=== PATIENT | female | born 1975 | race Caucasian/White ===

== ENCOUNTER 2017-03-07 17:03 | Emergency (ER) | payer OTHER ==
[~2017-03-07] VITALS: Ht 154.9 cm; Wt 81.6 kg
[~2017-03-07 17:03] MED LIST: ASPIR-TRIN325 M1 PO; ATARAX,VISTARIL25 MG PO; ATIVAN1 MG PO; BACLOFEN10 MG PO; BLACK COHOSH540 MG PO; DEPO-PROVER150 MG/ML IM; DEPO-PROVERA; DESYREL100 MG PO; DICLOFENAC POTA50 MG PO; FENOFIBRATE145 M1 PO; FLEXERIL10 MG PO; GLUCOPHAGE500 MG PO; HYDROCODON-ACE1 EAC7 PO; HYDROCODON-ACE1 EAC9 PO; Habitrol,Nicoderm CQ TD; INDOMETHACIN50 MG PO; KEFLEX500 MG PO; KLONOPIN1 MG PO; LIDODERM 5% P1 PATCH TD; LIPITOR10 MG PO; LOPRESSOR25 MG PO; LOVASTATIN10 MG PO; LYRICA150 MG PO; LYRICA75 MG PO; Lopressor PO; METFORMIN HCL500 M1 PO; METOPROLOL TART25 MG PO; MILK OF MAGN PO; MOBIC15 MG PO; MORPHINE SULFAT15 M1 PO; Motrin PO; NAPROSYN500 MG PO; NEXIUM20 MG PO; NICOTINE PATCH1 EAC1 TD; NORCO 7.5/321 TABLET PO; PERCOCET 7.51 TABLET PO; PRILOSEC10 MG PO; PRILOSEC40 MG PO; PROTONIX40 MG PO; PriLOSEC PO; RELPAX40 MG PO; REMERON45 MG PO; RITALIN20 MG PO; Reglan PO; SEROQUEL300 MG PO; SEROQUEL400 MG PO; SEROquel PO; TIZANIDINE HCL4 M1 PO; TOPROL XL50 MG PO; Tylenol Regular Stre PO; ULTRAM50 MG PO; VALIUM10 MG PO; VALTREX1000 MG PO; Valium PO; ZANAFLEX PO; ZESTRIL5 MG PO; ZOFRAN4 MG PO; ZOVIRAX800 M1 PO
[2017-03-07 17:44] LABS: HEMATOCRIT 41.6 % (36.0-46.0); MCH 26.5 PG (29.0-34.0); MCHC 32.9 G/DL (30.0-36.0); MCV 80.5 FL (83-99); MEAN PLAT.VOLUME 9.4 uM^3 (9.5-12.4); PLATELET COUNT 315 K/uL (156-360); RBC DIS.WIDTH-SD 46.3 % (39-53); RED BLOOD COUNT 5.17 M/uL (3.80-5.20); WHITE BLOOD COUNT 7.4 K/uL (4.1-10.2)
[2017-03-07 17:54] LABS: CHLORIDE 100 mEq/L (99-109); POTASSIUM 2.9 mEq/L (3.7-5.4); SODIUM 135 mEq/L (136-147)
[2017-03-07 17:57] LABS: GLUCOSE 151 mg/dL (70-99)
[2017-03-07 17:58] LABS: ANION GAP 14 MEQ/L (2-14)
[2017-03-07 17:59] LABS: TOTAL BILIRUBIN 0.5 mg/dL (0.0-1.0)
[2017-03-07 18:00] LABS: ALKALINE PHOSPHATASE 77 IU/L (3-129); GFR ESTIMATE (CALCULATED) > 59 mL/min/
[2017-03-07 18:01] LABS: UREA NITROGEN (BUN) 9 mg/dL (9-23)
[2017-03-07 18:04] LABS: LIPASE 23 U/L (1.0-51.0)
[2017-03-07 18:09] LABS: QUANTITATIVE HCG < 4.0 MIU/ML
[2017-03-07 18:16] LABS: ADD MIUA? YES; BILIRUBIN MODERATE; BLOOD NEGATIVE; COLOR AMBER ((YELLOW)); GLUCOSE (STRIP) NEGATIVE; KETONES 5; LEUKOCYTES TRACE; NITRITE NEGATIVE; PROTEIN (STRIP) 100; SPECIFIC GRAVITY 1.034 (1.000-1.030)
[2017-03-07 18:25] LABS: BACTERIA NONE SEEN /HPF; EPITHELIAL CELLS RARE /HPF; HYALINE CASTS 40-50 /LPF; MUCUS 3+ /LPF; RED BLOOD CELLS 0-5 /HPF (0-5)
[2017-03-07 18:50] LABS: ICTOTEST NEGATIVE
[2017-03-07] MEDS ORDERED: BENTYL20 MG PO (19:36)
[2017-03-07] MEDS ORDERED: ZOFRAN ODT4 MG PO (19:36)
[2017-03-07 19:48] VITALS: BP 125/81
== END 2017-03-07 19:50 | disposition home or self-care (01) ==
LOC: EME 17:03
PROVIDERS: Nurse Practitioner Family
DX: R19.7 Diarrhea, unspecified (principal); E86.0 Dehydration; E11.65 Type 2 diabetes mellitus with hyperglycemia; E87.6 Hypokalemia; K21.9 Gastro-esophageal reflux disease without esophagitis; I10 Essential (primary) hypertension; F41.9 Anxiety disorder, unspecified; F32.9 Major depressive disorder, single episode, unspecified; Z79.84 Long term (current) use of oral hypoglycemic drugs; Z87.19 Personal history of other diseases of the digestive system; Z86.73 Personal history of transient ischemic attack (TIA), and cerebral infarction without residual deficits; Z72.0 Tobacco use
CPT/HCPCS: 80053; 81003; 83690; 84702; 85027; 87493; 87506; 93005; 99281; 99284; J1885; J2765; J7030

== ENCOUNTER 2017-03-18 15:36 | Emergency (ER) | payer OTHER ==
[~2017-03-18] VITALS: Ht 154.9 cm; Wt 79.9 kg
[~2017-03-18 15:36] MED LIST changes: +BENTYL20 MG PO; +ZOFRAN ODT4 MG PO
[2017-03-18 16:22] LABS: HEMATOCRIT 43.9 % (36.0-46.0); MCH 27.6 PG (29.0-34.0); MCV 83.6 FL (83-99); MEAN PLAT.VOLUME 9.8 uM^3 (9.5-12.4); PLATELET COUNT 286 K/uL (156-360); RBC DIS.WIDTH-CV 17.1 % (11.8-14.6); RBC DIS.WIDTH-SD 51.8 % (39-53); RED BLOOD COUNT 5.25 M/uL (3.80-5.20); WHITE BLOOD COUNT 7.1 K/uL (4.1-10.2)
[2017-03-18 16:30] LABS: CHLORIDE 109 mEq/L (99-109); POTASSIUM 3.5 mEq/L (3.7-5.4); SODIUM 140 mEq/L (136-147)
[2017-03-18 16:32] LABS: GLUCOSE 186 mg/dL (70-99)
[2017-03-18 16:33] LABS: ANION GAP 10 MEQ/L (2-14)
[2017-03-18 16:34] LABS: TOTAL BILIRUBIN 0.4 mg/dL (0.0-1.0)
[2017-03-18 16:35] LABS: ALKALINE PHOSPHATASE 86 IU/L (3-129)
[2017-03-18 16:36] LABS: GFR ESTIMATE (CALCULATED) > 59 mL/min/
[2017-03-18 16:37] LABS: UREA NITROGEN (BUN) 10 mg/dL (9-23)
[2017-03-18 16:44] LABS: QUANTITATIVE HCG < 4.0 MIU/ML
[2017-03-18 17:52] LABS: ADD MIUA? YES; BILIRUBIN MODERATE; BLOOD NEGATIVE; COLOR AMBER ((YELLOW)); GLUCOSE (STRIP) 50; KETONES 5; LEUKOCYTES SMALL; NITRITE NEGATIVE; PROTEIN (STRIP) >=500; SPECIFIC GRAVITY 1.037 (1.000-1.030)
[2017-03-18 18:08] LABS: BACTERIA RARE /HPF; EPITHELIAL CELLS 1+ /HPF; HYALINE CASTS TNTC /LPF; MUCUS 3+ /LPF; UCUL ADDED? YES
[2017-03-18 18:26] LABS: LIPASE 25 U/L (1.0-51.0)
[2017-03-18 19:22] LABS: ICTOTEST NEGATIVE
[2017-03-18] MEDS ORDERED: ZOFRAN4 MG PO (19:51)
[2017-03-18] MEDS ORDERED: PERCOCET 5/31 TABLET PO (19:51)
[2017-03-18 20:11] VITALS: BP 115/88
== END 2017-03-18 20:29 | disposition home or self-care (01) ==
LOC: EME 15:36
DX: K29.70 Gastritis, unspecified, without bleeding (principal); R31.9 Hematuria, unspecified; E11.9 Type 2 diabetes mellitus without complications; Z79.84 Long term (current) use of oral hypoglycemic drugs; I70.0 Atherosclerosis of aorta; Z90.49 Acquired absence of other specified parts of digestive tract; Z72.0 Tobacco use
CPT/HCPCS: 74176; 80053; 81003; 83690; 84702; 85027; 87086; 99281; 99285; J2405; J3010; J7030

== ENCOUNTER 2017-06-26 15:49 | Emergency (ER) | payer OTHER ==
[~2017-06-26] VITALS: Ht 154.9 cm; Wt 79.2 kg
[~2017-06-26 15:49] MED LIST changes: +PERCOCET 5/31 TABLET PO
[2017-06-26 16:24] LABS: APPEARANCE CLOUDY ((CLEAR)); BILIRUBIN SMALL; BLOOD NEGATIVE; COLOR YELLOW ((YELLOW)); GLUCOSE (STRIP) NEGATIVE; KETONES 5; LEUKOCYTES LARGE; NITRITE NEGATIVE; PROTEIN (STRIP) 30; SPECIFIC GRAVITY 1.028 (1.000-1.030)
[2017-06-26 16:37] LABS: BACTERIA 2+ /HPF; EPITHELIAL CELLS 2+ /HPF; MUCUS 2+ /LPF; RED BLOOD CELLS 0-5 /HPF (0-5); UCUL ADDED? YES
[2017-06-26 17:16] LABS: HEMOGLOBIN 13.7 G/DL (11.9-15.5); MCHC 32.6 G/DL (30.0-36.0); MCV 82.8 FL (83-99); PLATELET COUNT 375 K/uL (156-360); RBC DIS.WIDTH-CV 14.1 % (11.8-14.6); RBC DIS.WIDTH-SD 42.5 % (39-53); RED BLOOD COUNT 5.07 M/uL (3.80-5.20); WHITE BLOOD COUNT 15.8 K/uL (4.1-10.2)
[2017-06-26 17:24] LABS: ALBUMIN 4.2 g/dL (3.2-4.8)
[2017-06-26 17:25] LABS: CHLORIDE 103 mEq/L (99-109); POTASSIUM 3.9 mEq/L (3.7-5.4); SODIUM 136 mEq/L (136-147)
[2017-06-26 17:27] LABS: GLUCOSE 165 mg/dL (70-99); TOTAL PROTEIN 7.7 g/dL (6.4-8.3)
[2017-06-26 17:29] LABS: TOTAL BILIRUBIN 0.3 mg/dL (0.0-1.0)
[2017-06-26 17:30] LABS: ALKALINE PHOSPHATASE 84 IU/L (3-129)
[2017-06-26 17:31] LABS: CREATININE 0.9 mg/dL (0.6-1.3); GFR ESTIMATE (CALCULATED) > 59 mL/min/
[2017-06-26 17:32] LABS: AST (GOT) 13 IU/L (2-34); UREA NITROGEN (BUN) 7 mg/dL (9-23)
[2017-06-26 17:34] LABS: ALT (GPT) 13 IU/L (3-49); LIPASE 179 U/L (1.0-51.0)
[2017-06-26 17:40] LABS: QUANTITATIVE HCG < 4.0 MIU/ML
[2017-06-26] MEDS ORDERED: ZOFRAN ODT4 MG PO (21:12)
[2017-06-26] MEDS ORDERED: KEFLEX500 MG PO (21:33)
[2017-06-26 22:40] LABS: AMYLASE 90 IU/L (1-118)
[2017-06-26 22:45] VITALS: BP 137/80
== END 2017-06-26 22:45 | disposition home or self-care (01) ==
LOC: EME 15:49
DX: K85.90 Acute pancreatitis without necrosis or infection, unspecified (principal); N39.0 Urinary tract infection, site not specified; G89.29 Other chronic pain; E11.9 Type 2 diabetes mellitus without complications; Z79.84 Long term (current) use of oral hypoglycemic drugs; I10 Essential (primary) hypertension; K21.9 Gastro-esophageal reflux disease without esophagitis; F17.200 Nicotine dependence, unspecified, uncomplicated; F32.9 Major depressive disorder, single episode, unspecified; F41.9 Anxiety disorder, unspecified; Z86.73 Personal history of transient ischemic attack (TIA), and cerebral infarction without residual deficits
CPT/HCPCS: 74177; 80053; 81003; 82150; 83690; 84702; 85027; 87086; 99281; 99285; J2270; J2405; J7030

== ENCOUNTER 2017-06-28 19:20 | Emergency (ER) | payer OTHER ==
[~2017-06-28] VITALS: Ht 154.9 cm; Wt 78.1 kg
[2017-06-28 20:03] LABS: HEMOGLOBIN 13.6 G/DL (11.9-15.5); MCH 26.7 PG (29.0-34.0); MCHC 32.4 G/DL (30.0-36.0); MCV 82.4 FL (83-99); PLATELET COUNT 373 K/uL (156-360); RBC DIS.WIDTH-CV 14.1 % (11.8-14.6); RBC DIS.WIDTH-SD 42.1 % (39-53); WHITE BLOOD COUNT 9.2 K/uL (4.1-10.2)
[2017-06-28 20:11] LABS: ALBUMIN 4.1 g/dL (3.2-4.8)
[2017-06-28 20:12] LABS: CHLORIDE 105 mEq/L (99-109); POTASSIUM 3.3 mEq/L (3.7-5.4); SODIUM 136 mEq/L (136-147)
[2017-06-28 20:14] LABS: GLUCOSE 187 mg/dL (70-99); TOTAL PROTEIN 7.6 g/dL (6.4-8.3)
[2017-06-28 20:17] LABS: ALKALINE PHOSPHATASE 80 IU/L (3-129)
[2017-06-28 20:18] LABS: CREATININE 0.9 mg/dL (0.6-1.3); GFR ESTIMATE (CALCULATED) > 59 mL/min/
[2017-06-28 20:19] LABS: AST (GOT) 11 IU/L (2-34); TOTAL BILIRUBIN 0.2 mg/dL (0.0-1.0); UREA NITROGEN (BUN) 7 mg/dL (9-23)
[2017-06-28 20:21] LABS: ALT (GPT) 12 IU/L (3-49); LIPASE 96 U/L (1.0-51.0)
[2017-06-28 20:27] LABS: QUANTITATIVE HCG < 4.0 MIU/ML
[2017-06-28 21:21] LABS: APPEARANCE CLOUDY ((CLEAR)); BILIRUBIN SMALL; BLOOD NEGATIVE; GLUCOSE (STRIP) 50; KETONES 5; LEUKOCYTES LARGE; NITRITE NEGATIVE; PROTEIN (STRIP) 30
[2017-06-28 21:33] LABS: BACTERIA RARE /HPF; EPITHELIAL CELLS 3+ /HPF; MUCUS 1+ /LPF; UCUL ADDED? YES
[2017-06-28 21:43] LABS: COLOR DK YELLOW ((YELLOW))
[2017-06-28] MEDS ORDERED: ZOFRAN4 MG PO (23:17)
[2017-06-28 23:55] VITALS: BP 128/74
== END 2017-06-29 00:05 | disposition home or self-care (01) ==
LOC: EXP 19:20 → EME 19:20 → EXP 06-29 00:05
DX: N39.0 Urinary tract infection, site not specified (principal); K21.9 Gastro-esophageal reflux disease without esophagitis; I10 Essential (primary) hypertension; E11.9 Type 2 diabetes mellitus without complications; F41.9 Anxiety disorder, unspecified; F32.9 Major depressive disorder, single episode, unspecified; F17.200 Nicotine dependence, unspecified, uncomplicated; Z79.84 Long term (current) use of oral hypoglycemic drugs; Z79.891 Long term (current) use of opiate analgesic; Z96.9 Presence of functional implant, unspecified; Z87.19 Personal history of other diseases of the digestive system; Z86.73 Personal history of transient ischemic attack (TIA), and cerebral infarction without residual deficits; Z90.49 Acquired absence of other specified parts of digestive tract; Z88.8 Allergy status to other drugs, medicaments and biological substances
CPT/HCPCS: 80053; 81003; 83690; 84702; 85027; 87086; J2270; J2405; J7030

== ENCOUNTER 2017-10-10 20:05 | Emergency (ER) | payer OTHER ==
[~2017-10-10] VITALS: Ht 154.9 cm; Wt 74.1 kg
[2017-10-10 20:54] LABS: APPEARANCE CLEAR ((CLEAR)); BILIRUBIN NEGATIVE; BLOOD NEGATIVE; COLOR COLORLESS ((YELLOW)); GLUCOSE (STRIP) 50; KETONES NEGATIVE; LEUKOCYTES NEGATIVE; NITRITE NEGATIVE; PROTEIN (STRIP) NEGATIVE; SPECIFIC GRAVITY 1.003 (1.000-1.030); UCUL ADDED? NO; UROBILINOGEN 0.2 MG/DL (0.2-1.0)
[2017-10-10 20:56] LABS: HEMATOCRIT 37.5 % (36.0-46.0); HEMOGLOBIN 12.4 G/DL (11.9-15.5); MCH 26.8 PG (29.0-34.0); MCHC 33.1 G/DL (30.0-36.0); PLATELET COUNT 247 K/uL (156-360); RBC DIS.WIDTH-CV 14.7 % (11.8-14.6); RBC DIS.WIDTH-SD 43.2 % (39-53); RED BLOOD COUNT 4.63 M/uL (3.80-5.20); WHITE BLOOD COUNT 10.4 K/uL (4.1-10.2)
[2017-10-10 21:07] LABS: ALBUMIN 3.8 g/dL (3.2-4.8)
[2017-10-10 21:08] LABS: CHLORIDE 104 mEq/L (99-109); POTASSIUM 3.7 mEq/L (3.7-5.4); SODIUM 140 mEq/L (136-147)
[2017-10-10 21:10] LABS: GLUCOSE 175 mg/dL (70-99); TOTAL PROTEIN 6.5 g/dL (6.4-8.3)
[2017-10-10 21:12] LABS: TOTAL BILIRUBIN 0.2 mg/dL (0.0-1.0)
[2017-10-10 21:13] LABS: ALKALINE PHOSPHATASE 88 IU/L (3-129)
[2017-10-10 21:14] LABS: CREATININE 0.7 mg/dL (0.6-1.3); GFR ESTIMATE (CALCULATED) > 59 mL/min/
[2017-10-10 21:15] LABS: AST (GOT) 11 IU/L (2-34); UREA NITROGEN (BUN) 6 mg/dL (9-23)
[2017-10-10 21:16] LABS: ALT (GPT) 14 IU/L (3-49)
[2017-10-10 21:17] LABS: LIPASE 59 U/L (1.0-51.0)
[2017-10-10 21:22] LABS: QUANTITATIVE HCG < 4.0 MIU/ML
[2017-10-10] MEDS ORDERED: ZOFRAN4 MG PO (22:58)
[2017-10-10] MEDS ORDERED: PERCOCET 5/31 TABLET PO (22:58)
[2017-10-10 23:25] VITALS: BP 122/84
== END 2017-10-10 23:26 | disposition home or self-care (01) ==
LOC: EME 20:05
PROVIDERS: Physician Assistant
DX: K85.90 Acute pancreatitis without necrosis or infection, unspecified (principal); G89.18 Other acute postprocedural pain; I10 Essential (primary) hypertension; E11.9 Type 2 diabetes mellitus without complications; Z79.84 Long term (current) use of oral hypoglycemic drugs; K21.9 Gastro-esophageal reflux disease without esophagitis; G43.909 Migraine, unspecified, not intractable, without status migrainosus; N80.9 Endometriosis, unspecified; F17.200 Nicotine dependence, unspecified, uncomplicated; F41.9 Anxiety disorder, unspecified; F32.9 Major depressive disorder, single episode, unspecified; Z86.73 Personal history of transient ischemic attack (TIA), and cerebral infarction without residual deficits; Z90.49 Acquired absence of other specified parts of digestive tract; Z96.89 Presence of other specified functional implants; Z88.8 Allergy status to other drugs, medicaments and biological substances
CPT/HCPCS: 74177; 80053; 81003; 83690; 84702; 85027; 99281; 99285; J2405; J3010; J7030

== ENCOUNTER 2017-11-28 14:39 | Emergency (ER) | payer OTHER ==
[~2017-11-28] VITALS: Ht 154.9 cm; Wt 71.7 kg
[2017-11-28 16:51] VITALS: BP 124/74
== END 2017-11-28 16:53 | disposition home or self-care (01) ==
LOC: EME 14:39
DX: G43.909 Migraine, unspecified, not intractable, without status migrainosus (principal); E11.9 Type 2 diabetes mellitus without complications; K21.9 Gastro-esophageal reflux disease without esophagitis; I10 Essential (primary) hypertension; G89.29 Other chronic pain; M54.9 Dorsalgia, unspecified; F41.9 Anxiety disorder, unspecified; F32.9 Major depressive disorder, single episode, unspecified; F17.200 Nicotine dependence, unspecified, uncomplicated; Z79.3 Long term (current) use of hormonal contraceptives; Z79.891 Long term (current) use of opiate analgesic; Z79.84 Long term (current) use of oral hypoglycemic drugs; Z96.89 Presence of other specified functional implants; Z86.69 Personal history of other diseases of the nervous system and sense organs; Z87.42 Personal history of other diseases of the female genital tract; Z86.73 Personal history of transient ischemic attack (TIA), and cerebral infarction without residual deficits; Z98.890 Other specified postprocedural states; Z90.49 Acquired absence of other specified parts of digestive tract; Z88.8 Allergy status to other drugs, medicaments and biological substances
CPT/HCPCS: 99281; 99284; J1100; J1885; J2765; J7030